=== PATIENT | female | born 1990 | race Two or more races ===

== ENCOUNTER 2016-06-23 13:13 | Inpatient (IN) | payer BC ==
[~2016-06-23] VITALS: Ht 157.5 cm; Wt 94.5 kg
[2016-06-23] MEDS: LACTATED RINGERS 1,000 ML IV SCH (16:50)
[2016-06-23] MEDS ORDERED: OXYTOCIN 30U/ 0.9% NaCL 500ML 500 ML IV ONE (17:12)
[2016-06-23] MEDS ORDERED: OXYTOCIN 30U/ 0.9% NaCL 500ML 500 ML IV PRN (17:12)
[2016-06-23] MEDS ORDERED: FERR325T10 PO (17:30)
[2016-06-23] MEDS ORDERED: ONDANSETRON 2MG/ML, 2ML IVPush PRN (17:30)
[2016-06-23] MEDS ORDERED: PLEASE ENTER HEIGHT AND WEIGHT MC SCH (17:30)
[2016-06-23] MEDS ORDERED: TERBUTALINE 1 MG/ML, 1ML IVPush PRN (17:30)
[2016-06-23] MEDS ORDERED: PREN1TAB60 PO (17:30)
[2016-06-23] MEDS ORDERED: FENTANYL PF 100 MCG/2ML IV PRN (17:30)
[2016-06-23 17:38] VITALS: BP 122/71
[2016-06-23] MEDS ORDERED: NEWBORN KIT ONE (18:11)
[2016-06-23] MEDS ORDERED: OXYTOCIN 30U/ 0.9% NaCL 500ML 500 ML ONE (19:12)
[2016-06-23] MEDS ORDERED: LIDOCAINE 1%, 20ML ONE (19:12)
[2016-06-23] MEDS ORDERED: MISOPROSTOL 200 MCG TABLET ONE (19:12)
[2016-06-23] MEDS ORDERED: CEFAZOLIN PMX 2GM/100ML 100 ML IV ONE (23:30)
[2016-06-24] MEDS: LACTATED RINGERS 1,000 ML IV SCH ×4 (00:28→14:10)
[2016-06-24] MEDS: D5%-LACTATED RINGERS 1,000 ML IV SCH ×4 (01:12→21:22)
[2016-06-24] MEDS ORDERED: FENTANYL PF 100 MCG/2ML ONE ×2 (02:17→10:20)
[2016-06-24] MEDS: FENTANYL PF 100 MCG/2ML IVPush PRN ×2 (02:20→10:24)
[2016-06-24 07:15] VITALS: BP 118/76
[2016-06-24] MEDS ORDERED: CEFAZOLIN PMX 1GM/50ML 50 ML ONE (08:19)
[2016-06-24] MEDS: CEFAZOLIN PMX 1GM/50ML 50 ML IV SCH ×3 (08:21→22:25)
[2016-06-24] MEDS: LACTATED RINGERS 1,000 ML IVBOLUS PRN ×2 (10:32→11:14)
[2016-06-24] MEDS ORDERED: FENTANYL/BUPIV./NS/PF 250 ML EPIDCONT SCH ×2 (10:38→11:21)
[2016-06-24] MEDS ORDERED: FENTANYL/BUPIV./NS/PF 250 ML EPIDCONT ONE ×2 (11:25→11:29)
[2016-06-24] MEDS ORDERED: BUPIVACAINE/PF 0.25% ONE (11:25)
[2016-06-24] MEDS ORDERED: BUPIVACAINE 0.25% ONE (11:29)
[2016-06-24] MEDS ORDERED: NALOXONE 0.4 MG/ML, 1ML IVPush PRN (11:30)
[2016-06-24] MEDS ORDERED: LACTATED RINGERS 1,000 ML IVBOLUS PRN (11:30)
[2016-06-24] MEDS ORDERED: EPHEDRINE 50 MG/ML, 1ML IVPush PRN (11:30)
[2016-06-25] MEDS: LACTATED RINGERS 1,000 ML IV SCH ×3 (00:20→03:21)
[2016-06-25] MEDS: D5%-LACTATED RINGERS 1,000 ML IV SCH (01:12)
[2016-06-25] MEDS ORDERED: CARBOPROST TROMETHAMINE 250 MCG/ML, 1ML IM PRN (01:30)
[2016-06-25] MEDS ORDERED: DIPH,PERTUSS(ACELL),TET VAC/PF NC IM-VACC PRN (01:30)
[2016-06-25] MEDS ORDERED: OXYcodone/APAP 5/325MG TABLET PO PRN ×2 (01:30)
[2016-06-25] MEDS ORDERED: MISOPROSTOL 200 MCG TABLET PR PRN (01:30)
[2016-06-25] MEDS ORDERED: ONDANSETRON 2MG/ML, 2ML IV PRN (01:30)
[2016-06-25] MEDS ORDERED: METHYLERGONOVINE 0.2 MG/ML IM PRN (01:30)
[2016-06-25] MEDS ORDERED: ACETAMINOPHEN 325 MG TABLET PO PRN (01:30)
[2016-06-25] MEDS ORDERED: OXYTOCIN 30U/ 0.9% NaCL 500ML 500 ML ONE (02:57)
[2016-06-25] MEDS: OXYTOCIN 30U/ 0.9% NaCL 500ML 500 ML IV SCH ×3 (03:15→21:06)
[2016-06-25] MEDS ORDERED: IBUPROFEN 600 MG TABLET ONE (04:27)
[2016-06-25] MEDS: IBUPROFEN 600 MG TABLET PO PRN ×2 (04:29→19:38)
[2016-06-25 05:21] VITALS: BP 108/69
[2016-06-25] MEDS: PRENATAL VIT/IRON/FA 1 EACH TABLET PO SCH (08:36)
[2016-06-25] MEDS: DOCUSATE 100 MG CAPSULE PO PRN (08:37)
[2016-06-25 08:40] VITALS: BP 104/66
[2016-06-25 11:08] LABS: DIFF TOTAL CELLS COUNTED 100 CELL DIFF
[2016-06-25 11:10] LABS: VERIFY COUNTS? YES
[2016-06-25 11:12] LABS: ANISOCYTOSIS 1+; MICROCYTOSIS 1+; POLYCHROMASIA 1+
[2016-06-25 12:00] VITALS: BP 105/70
[2016-06-25 16:00] VITALS: BP 106/67
[2016-06-25] MEDS ORDERED: MEASLES,MUMPS&RUBELLA VACC/PF 0.5 ML SQ-VACC ONE (18:30)
[2016-06-25 20:17] VITALS: BP 118/68
[2016-06-26] VITALS: BP 109/61
[2016-06-26 03:47] VITALS: BP 111/72
[2016-06-26 07:16] VITALS: BP 104/68
[2016-06-26] MEDS: DOCUSATE 100 MG CAPSULE PO PRN (09:35)
[2016-06-26] MEDS: IBUPROFEN 600 MG TABLET PO PRN ×2 (09:35→18:03)
[2016-06-26] MEDS: PRENATAL VIT/IRON/FA 1 EACH TABLET PO SCH (09:35)
[2016-06-26 18:56] VITALS: BP 117/70
[2016-06-27] MEDS: DOCUSATE 100 MG CAPSULE PO PRN ×2 (00:17→07:38)
[2016-06-27] MEDS: IBUPROFEN 600 MG TABLET PO PRN ×2 (00:17→06:08)
[2016-06-27 06:48] VITALS: BP 110/70
[2016-06-27] MEDS: PRENATAL VIT/IRON/FA 1 EACH TABLET PO SCH (07:38)
[2016-06-27] MEDS ORDERED: OXYC-302 PO (10:55)
[2016-06-27] MEDS ORDERED: IBUP-1222 PO (10:56)
== END 2016-06-27 12:56 | disposition home or self-care (01) | DRG 775 ==
LOC: LDIP 16:39 → 2NW 06-25 04:50
PROVIDERS: ADMIT Obstetrics & Gynecology Maternal & Fetal Medicine; ATTEND Obstetrics & Gynecology Maternal & Fetal Medicine
PROC: 10E0XZZ Delivery of Products of Conception, External Approach (ICD-10-PCS; principal; 2016-06-25)
PROC: 0KQM0ZZ Repair Perineum Muscle, Open Approach (ICD-10-PCS; 2016-06-25)
PROC: 10907ZC Drainage of Amniotic Fluid, Therapeutic from Products of Conception, Via Natural or Artificial Opening (ICD-10-PCS; 2016-06-25)
PROC: 10E0XZZ Delivery of Products of Conception, External Approach (ICD-10-PCS; 2016-06-25)
DX: O99.824 Streptococcus B carrier state complicating childbirth (principal); O41.03X0 Oligohydramnios, third trimester, not applicable or unspecified; Z37.0 Single live birth; Z3A.39 39 weeks gestation of pregnancy; O70.1 Second degree perineal laceration during delivery
CPT/HCPCS: 36415; 59200; 82803; 85025; 86850; 86900; J0690; J3010; J3490; J2590; J7120; J7121

== ENCOUNTER 2019-03-22 16:37 | Inpatient (IN) | payer BC ==
[~2019-03-22] VITALS: Ht 157.5 cm; Wt 95.6 kg
[~2019-03-22 16:37] MED LIST: FERR-51 PO; IBUP-1222 PO; OXYC-302 PO; PREN1TAB60 PO
[2019-03-22] MEDS ORDERED: NEWBORN KIT ONE (17:14)
[2019-03-22 17:16] VITALS: BP 120/71
[2019-03-22] MEDS ORDERED: OXYTOCIN 30U/ 0.9% NaCL 500ML 500 ML IV ONE (19:14)
[2019-03-22] MEDS: D5%-LACTATED RINGERS 1,000 ML IV SCH (19:14)
[2019-03-22] MEDS ORDERED: FENTANYL/BUPIV./NS/PF 250 ML EPIDCONT SCH ×2 (19:16→20:48)
[2019-03-22] MEDS ORDERED: SODIUM CHLORIDE FLUSH 10ML SYR IVF PRN (19:30)
[2019-03-22] MEDS ORDERED: SODIUM CITRATE/CITRIC ACID 30 ML UDC PO PRN (19:30)
[2019-03-22] MEDS ORDERED: METOCLOPRAMIDE 5 MG/ML, 2ML IVPush PRN (19:30)
[2019-03-22] MEDS ORDERED: FENTANYL PF 500 MCG, BUPIVACAINE/PF 0.5%, 30ML 62.5 ML in SODIUM CHLORIDE 0.9% 177.5 ML EPIDCONT SCH (19:30)
[2019-03-22] MEDS ORDERED: FENTANYL PF 100 MCG/2ML IV PRN (19:30)
[2019-03-22] MEDS ORDERED: ALUMINUM/MAG/SIMETHICONE 30 ML UDC PO PRN (19:30)
[2019-03-22] MEDS ORDERED: ONDANSETRON 2MG/ML, 2ML IVPush PRN (19:30)
[2019-03-22] MEDS ORDERED: TERBUTALINE 1 MG/ML, 1ML IVPush PRN (19:30)
[2019-03-22] MEDS ORDERED: TERBUTALINE 1 MG/ML, 1ML SQ PRN (19:30)
[2019-03-22] MEDS ORDERED: CALCIUM CARBONATE 500 MG TAB.CHEW PO PRN (19:30)
[2019-03-22] MEDS ORDERED: FENTANYL PF 100 MCG/2ML IVPush PRN (19:30)
[2019-03-22 19:39] LABS: BASOPHILS # (AUTO) 0.06 x10^3/uL (0-0.1); BASOPHILS % (AUTO) 1 % (0-1); EOSINOPHILS # (AUTO) 0.16 x10^3/uL (0-0.4); EOSINOPHILS % (AUTO) 1 % (1-7); LYMPHOCYTES # (AUTO) 2.14 x10^3/uL (1-3.4); LYMPHOCYTES % (AUTO) 16 % (22-44); MD NO; MEAN CORPUSCULAR HEMOGLOBIN 24.3 pg (27.0-34.8); MEAN CORPUSCULAR HGB CONC 32.7 g/dL (32.4-35.8); MEAN CORPUSCULAR VOLUME 74.1 fL (80-100); MONOCYTES # (AUTO) 0.68 x10^3/uL (0.2-0.8); MONOCYTES % (AUTO) 5 % (2-9); NEUTROPHILS # (AUTO) 10.24 x10^3/uL (1.8-6.8); NEUTROPHILS % (AUTO) 77 % (42-75); PLATELET COUNT 236 x10^3/uL (130-400); RED BLOOD COUNT 4.78 x10^6/uL (3.82-5.3); RED CELL DISTRIBUTION WIDTH 14.7 % (9.6-15.2)
[2019-03-22] MEDS ORDERED: OXYTOCIN 30U/ 0.9% NaCL 500ML 500 ML ONE (19:57)
[2019-03-22] MEDS ORDERED: FENTANYL/BUPIV./NS/PF 0 ML EPIDCONT ONE (19:57)
[2019-03-22] MEDS ORDERED: LIDOCAINE 1%, 20ML ONE (19:58)
[2019-03-22] MEDS ORDERED: MISOPROSTOL 200 MCG TABLET ONE (20:00)
[2019-03-22] MEDS ORDERED: LIDOCAINE/PF 1.5%-EPI 1:200K, 30ML ONE (20:15)
[2019-03-22] MEDS ORDERED: BUPIVACAINE 0.25% ONE (20:15)
[2019-03-22] MEDS ORDERED: LACTATED RINGERS 1,000 ML IV SCH (20:48)
[2019-03-22] MEDS ORDERED: EPHEDRINE 50 MG/ML, 1ML IVPush PRN (21:00)
[2019-03-23] MEDS ORDERED: OXYTOCIN 30U/ 0.9% NaCL 500ML 500 ML IV PRN (00:20)
[2019-03-23] MEDS: LACTATED RINGERS 1,000 ML IV SCH ×4 (00:22→19:14)
[2019-03-23] MEDS ORDERED: SODIUM CITRATE/CITRIC ACID 30 ML UDC ONE (01:04)
[2019-03-23] MEDS ORDERED: METOCLOPRAMIDE 5 MG/ML, 2ML ONE (01:04)
[2019-03-23] MEDS: OXYTOCIN 30U/ 0.9% NaCL 500ML 500 ML IV SCH ×3 (01:39→21:39)
[2019-03-23] MEDS ORDERED: ONDANSETRON 2MG/ML, 2ML IV PRN (02:00)
[2019-03-23] MEDS ORDERED: ACETAMINOPHEN 325 MG TABLET PO PRN (02:00)
[2019-03-23] MEDS ORDERED: RHOGAM FROM BLOOD BANK 1 NOTE EA IM/IV ONE (02:00)
[2019-03-23] MEDS ORDERED: BISACODYL 10 MG SUPP PR PRN (02:00)
[2019-03-23] MEDS ORDERED: MISOPROSTOL 200 MCG TABLET PR PRN (02:00)
[2019-03-23] MEDS ORDERED: HYDROcodone/APAP 5/325 TABLET PO PRN (02:00)
[2019-03-23] MEDS: D5%-LACTATED RINGERS 1,000 ML IV SCH ×3 (03:14→19:14)
[2019-03-23] MEDS ORDERED: OXYTOCIN 30U/ 0.9% NaCL 500ML 500 ML ONE (03:24)
[2019-03-23 03:40] VITALS: BP 113/68
[2019-03-23] MEDS: OXYcodone/APAP 5/325MG TABLET PO PRN ×3 (03:58→17:07)
[2019-03-23] MEDS: IBUPROFEN 800 MG TABLET PO PRN ×3 (03:58→21:09)
[2019-03-23 07:20] VITALS: BP 110/69
[2019-03-23 09:42] LABS: MEAN CORPUSCULAR HEMOGLOBIN 24.1 pg (27.0-34.8); MEAN CORPUSCULAR HGB CONC 32.2 g/dL (32.4-35.8); MEAN CORPUSCULAR VOLUME 74.8 fL (80-100); PLATELET COUNT 215 x10^3/uL (130-400); RED BLOOD COUNT 4.36 x10^6/uL (3.82-5.3); RED CELL DISTRIBUTION WIDTH 15.1 % (9.6-15.2)
[2019-03-23 10:08] LABS: BASOPHILS # (AUTO) 0.08 x10^3/uL (0-0.1); BASOPHILS % (AUTO) 0 % (0-1); EOSINOPHILS # (AUTO) 0.19 x10^3/uL (0-0.4); EOSINOPHILS % (AUTO) 1 % (1-7); LYMPHOCYTES # (AUTO) 2.23 x10^3/uL (1-3.4); LYMPHOCYTES % (AUTO) 12 % (22-44); MD SCAN; MONOCYTES # (AUTO) 0.85 x10^3/uL (0.2-0.8); MONOCYTES % (AUTO) 4 % (2-9); NEUTROPHILS # (AUTO) 15.87 x10^3/uL (1.8-6.8); NEUTROPHILS % (AUTO) 83 % (42-75)
[2019-03-23] MEDS: PRENATAL VIT/IRON/FA 1 EACH TABLET PO SCH (10:12)
[2019-03-23] MEDS: DOCUSATE 100 MG CAPSULE PO PRN (10:12)
[2019-03-23 12:00] VITALS: BP 107/71
[2019-03-23 16:00] VITALS: BP 112/68
[2019-03-23 21:00] VITALS: BP 101/69
[2019-03-24] MEDS: D5%-LACTATED RINGERS 1,000 ML IV SCH ×2 (03:14→11:14)
[2019-03-24] MEDS: LACTATED RINGERS 1,000 ML IV SCH ×2 (03:14→11:14)
[2019-03-24] MEDS: IBUPROFEN 800 MG TABLET PO PRN ×3 (04:45→21:11)
[2019-03-24] MEDS: OXYTOCIN 30U/ 0.9% NaCL 500ML 500 ML IV SCH (07:39)
[2019-03-24 07:55] VITALS: BP 108/72
[2019-03-24] MEDS: DOCUSATE 100 MG CAPSULE PO PRN ×2 (08:08→20:00)
[2019-03-24] MEDS: PRENATAL VIT/IRON/FA 1 EACH TABLET PO SCH (08:08)
[2019-03-24] MEDS: OXYcodone/APAP 5/325MG TABLET PO PRN ×3 (08:08→20:00)
[2019-03-24 19:20] VITALS: BP 114/74
[2019-03-25] MEDS: OXYcodone/APAP 5/325MG TABLET PO PRN ×2 (00:08→05:08)
[2019-03-25] MEDS: IBUPROFEN 800 MG TABLET PO PRN (05:07)
[2019-03-25 08:00] VITALS: BP 115/74
== END 2019-03-25 14:15 | disposition home or self-care (01) | DRG 807 ==
LOC: LDOP 16:37 → LDIP 19:14 → 2NW 03-23 03:31
PROVIDERS: ADMIT Obstetrics & Gynecology Maternal & Fetal Medicine; ATTEND Obstetrics & Gynecology Maternal & Fetal Medicine
PROC: 10E0XZZ Delivery of Products of Conception, External Approach (ICD-10-PCS; principal; 2019-03-23)
PROC: 0KQM0ZZ Repair Perineum Muscle, Open Approach (ICD-10-PCS; 2019-03-23)
PROC: 3E0R3BZ Introduction of Anesthetic Agent into Spinal Canal, Percutaneous Approach (ICD-10-PCS; 2019-03-23)
PROC: 00HU33Z Insertion of Infusion Device into Spinal Canal, Percutaneous Approach (ICD-10-PCS; 2019-03-23)
PROC: 10907ZC Drainage of Amniotic Fluid, Therapeutic from Products of Conception, Via Natural or Artificial Opening (ICD-10-PCS; 2019-03-23)
DX: O77.0 Labor and delivery complicated by meconium in amniotic fluid (principal); Z37.0 Single live birth; O69.1XX0 Labor and delivery complicated by cord around neck, with compression, not applicable or unspecified; O70.1 Second degree perineal laceration during delivery; Z3A.40 40 weeks gestation of pregnancy; Z88.0 Allergy status to penicillin
CPT/HCPCS: 36415; J3490; S0020; 82803; 85025; 86592; 86850; 86900; G0378; J3010; J7050; J7120

== ENCOUNTER 2020-07-29 17:58 | Emergency (ER) | payer SELFPAY ==
[~2020-07-29 17:58] MED LIST changes: -OXYC-302 PO; +OXYC1TAB14 PO
== END 2020-07-29 19:36 | disposition home or self-care (01) ==
LOC: ED 19:30
DX: R50.9 Fever, unspecified (principal); Z53.21 Procedure and treatment not carried out due to patient leaving prior to being seen by health care provider